=== PATIENT | male | born 1995 | race African-American/Black ===

== ENCOUNTER 2022-12-15 22:53 | Emergency (ER) | payer BC ==
[2022-12-15 23:14] VITALS: RESP 18; BMI 22.2
[2022-12-16] MEDS ORDERED: HYDROmorphone HCL/PF 1 MG/ML VIAL ONE ×3 (02:40→06:41)
[2022-12-16] MEDS ORDERED: HYDROmorphone HCL CARPU-JECT 1 MG/1 ML DISP.SYRIN IVPUSH ONE ×4 (02:43→06:41)
[2022-12-16 03:39] LABS: HEMATOCRIT 30.8 % (35.4-49); HEMOGLOBIN 10.5 GM/dL (11.7-16.9); MCH 30.5 pg (25.7-33.7); MCHC 34.1 g/dl (32.0-35.9); MEAN CELL VOLUME 89.3 fl (80-96); MEAN PLT VOLUME 8.3 fl (7.5-11.1); PLATELET COUNT 172 10^3/uL (134-434); RBC 3.45 M/mm3 (4.00-5.60); RDW 18.8 % (11.9-15.9); WHITE BLOOD COUNT 3.9 K/mm3 (4.0-10.0)
[2022-12-16 03:41] LABS: INR 1.19 (0.83-1.09); PROTHROMBIN TIME (PATIENT) 13.7 SEC (9.7-13.0)
[2022-12-16 03:58] LABS: CALCIUM 8.6 mg/dL (8.5-10.1)
[2022-12-16 03:59] LABS: ALBUMIN 3.7 g/dl (3.4-5.0); BLOOD UREA NITROGEN 6.4 mg/dL (7-18)
[2022-12-16 04:02] LABS: CREATININE 0.6 mg/dL (0.55-1.3)
[2022-12-16 04:03] LABS: BILIRUBIN,TOTAL 0.5 mg/dL (0.2-1); TOT PROT 7.7 g/dl (6.4-8.2)
[2022-12-16 06:13] VITALS: BP 139/107; PULSE 67; TEMP 98.2
== END 2022-12-16 07:01 | disposition short-term general hospital (02) ==
LOC: FER 22:53
PROC: 3E033GC Introduction of Other Therapeutic Substance into Peripheral Vein, Percutaneous Approach (ICD-10-PCS; principal; 2022-12-15)
PROC: 3E033GC Introduction of Other Therapeutic Substance into Peripheral Vein, Percutaneous Approach (ICD-10-PCS; 2022-12-15)
PROC: 3E033GC Introduction of Other Therapeutic Substance into Peripheral Vein, Percutaneous Approach (ICD-10-PCS; 2022-12-15)
DX: G45.9 Transient cerebral ischemic attack, unspecified (principal); D57.00 Hb-SS disease with crisis, unspecified
CPT/HCPCS: 0241U-QW; 36415; 70450-TC; 71045-TC-FY; 80053; 82550; 82553; 84484; 85027; 85610; 93005; 99285-25